=== PATIENT | female | born 1980 | race Caucasian/White ===

== ENCOUNTER 2019-04-08 23:25 | Emergency (ER) | payer MEDICAID ==
[2019-04-08 23:36] VITALS: BP_SYST 140
--- NOTE | 2019-04-09 01:34 | NUR ---
Patient to ER bed 8 to gown for evaluation. Side rails up.
--- NOTE | 2019-04-09 01:35 | NUR ---
Pt c/o right wrist pain and right ankle pain s/p slip and fall. Pt used her right hand to catch herself. Pt unable to rotate wrist without pain. Pt denies hitting head, no loss of consciousness. CMS intact for right hand and right foot. No deformities noted. Pt "took an 800mg ibuprofen around 1500 and only made her sleep." No other injuries/complaints per patient or noted.
--- NOTE | 2019-04-09 01:41 | NUR ---
ER Dr. Stephen at bedside examining patient.
[2019-04-09] MEDS ORDERED: HYDROcodone/ACETAMIN 5-325 MG TAB (NORCO/ VICODIN) PO ONE (02:00)
[2019-04-09 02:20] VITALS: BP_SYST 133
--- NOTE | 2019-04-09 02:20 | NUR ---
Patient given written and verbal discharge instructions and verbalizes understanding. ER MD discussed with patient the results and treatment provided. Patient in stable condition. ID arm band removed. Rx of Tylenol with Codeine given. Patient educated on pain management and to follow up with PMD. Pain Scale 2. Opportunity for questions provided and answered. Medication side effect fact sheet provided.
== END 2019-04-09 02:20 | disposition home or self-care (01) ==
LOC: SED 23:25
DX: S63.501A Unspecified sprain of right wrist, initial encounter (principal); S90.31XA Contusion of right foot, initial encounter; W01.0XXA Fall on same level from slipping, tripping and stumbling without subsequent striking against object, initial encounter; Y93.89 Activity, other specified; Y92.89 Other specified places as the place of occurrence of the external cause; Y99.8 Other external cause status
CPT/HCPCS: 99283

== ENCOUNTER 2021-11-22 16:31 | Emergency (ER) | payer MEDICAID ==
[~2021-11-22] VITALS: Ht 165.1 cm; Wt 72.6 kg
[2021-11-22 16:47] VITALS: BP_SYST 133
[2021-11-22 17:45] LABS: BASOPHILS % (AUTO) 0.8 % (0.0-2.0); EOSINOPHILS # (AUTO) 0.1 K/uL (0.0-0.4); EOSINOPHILS % (AUTO) 1.8 % (0.0-4.0); HEMATOCRIT 32.5 % (36-48); HEMOGLOBIN 10.5 g/dL (12.0-16.0); LYMPHOCYTES # (AUTO) 1.7 K/uL (1.0-5.5); LYMPHOCYTES % (AUTO) 36.5 % (20.5-51.5); MEAN CORPUSCULAR HEMOGLOBIN 24 pg (27-31); MEAN CORPUSCULAR HGB CONC 32 % (32-36); MEAN CORPUSCULAR VOLUME 74 fL (79.0-98.0); MONOCYTES # (AUTO) 0.3 K/uL (0.0-1.0); MONOCYTES % (AUTO) 6.9 % (1.7-9.3); NEUTROPHILS # (AUTO) 2.4 K/uL (1.8-7.7); PLATELET COUNT (AUTO) 204 K/uL (130-430); RED BLOOD CELL COUNT(AUTO) 4.38 MIL/uL (4.2-6.2); RED CELL DISTRIBUTION WIDTH 14.2 % (9.0-15.0); WHITE BLOOD COUNT (AUTO) 4.5 K/uL (4.8-10.8)
[2021-11-22 17:54] LABS: ANION GAP 11 (5-15); CALCIUM 8.6 mg/dL (8.4-11.0); CHLORIDE 103 mmol/L (98-107); CREATININE 0.71 mg/dL (0.55-1.30); GLUCOSE 112 mg/dL (70-99); SODIUM SERUM 138 mmol/L (136-145); UREA NITROGEN, BLOOD 21 mg/dL (8-21)
[2021-11-22 17:56] LABS: GFR AFRICAN AMERICAN 116 mL/min (>90)
[2021-11-22 17:58] LABS: ALANINE AMINOTRANSFERASE 15 U/L (12-78); ALBUMIN 3.4 g/dL (3.4-4.8); ASPARTATE AMINOTRANSFERASE 14 U/L (10-37)
[2021-11-22 18:11] LABS: TOTAL BILIRUBIN < 0.1 mg/dL (0.0-1.0)
[2021-11-22] MEDS: LIDOCAINE PATCH 5% 1 EA TP SCH ×2 (18:14→19:53)
[2021-11-22] MEDS ORDERED: KETOROLAC TROMETHAMINE 15 MG VIAL IVP ONE ×2 (18:15→20:45)
[2021-11-22] MEDS ORDERED: LIDOCAINE PATCH 5% 1 EA TP ONE (19:45)
[2021-11-22] MEDS ORDERED: IBUP-1969 PO (20:33)
[2021-11-22 21:03] VITALS: BP_SYST 128
== END 2021-11-22 21:03 | disposition home or self-care (01) ==
LOC: SED 16:31
DX: M94.0 Chondrocostal junction syndrome [Tietze] (principal); R07.89 Other chest pain; Z79.899 Other long term (current) drug therapy
CPT/HCPCS: 36415; 71045; 80053; 81025; 82550; 84484; 85025; 93005; 96374; 96376; 99285; J1885